=== PATIENT | male | born 1965 | race African-American/Black ===

== ENCOUNTER 2024-08-17 14:47 | Emergency (ER) | payer MEDICAID ==
[~2024-08-17] VITALS: Ht 175.3 cm; Wt 91.0 kg
[2024-08-17 15:22] VITALS: O2SAT 97
[2024-08-17 15:55] LABS: BASOPHILS % 0.9 % (0.0-2.0); EOSINOPHILS % 3.8 % (0.0-5.0); HEMATOCRIT. 45.4 % (42.0-52.0); HEMOGLOBIN. 15.5 g/dL (14.0-18.0); LYMPHOCYTES % 47.5 % (20.0-50.0); MEAN CORPUSCULAR HEMOGLOBIN 30.1 pg (28.0-32.0); MEAN CORPUSCULAR HGB CONC 34.1 g/dL (31.0-37.0); MEAN CORPUSCULAR VOLUME 88.4 fL (80.0-94.0); MEAN PLATELET VOLUME 8.8 fl (7.4-10.4); NEUTROPHILS % 38.8 % (40.0-76.0); PLATELET 202 x1000/uL (130-400); RED BLOOD CELL COUNT 5.13 mill/uL (4.7-6.1); RED CELL DISTRIBUTION WIDTH 13.3 % (11.6-14.6); WHITE BLOOD COUNT 4.4 x1000/uL (4.5-11.0)
[2024-08-17 16:00] LABS: CHLORIDE 106 mEq/L (98-107); POTASSIUM 3.9 mEq/L (3.5-5.1); SODIUM 139 mEq/L (136-145)
[2024-08-17 16:01] LABS: CARBON DIOXIDE 26 mEq/L (21-32)
[2024-08-17 16:02] LABS: CALCIUM 9.9 mg/dL (8.7-10.4)
[2024-08-17 16:06] LABS: CREATININE 1.2 mg/dL (0.6-1.3); GLUCOSE 90 mg/dL (70-105); UREA NITROGEN BLOOD 9 mg/dL (9-23)
[2024-08-17 16:07] LABS: TROPONIN I HIGH SENSITIVITY 4 ng/L (3.0-53)
[2024-08-17] MEDS: ASPIRIN 81MG TABLET PO ONE (17:02)
[2024-08-17 18:21] LABS: TROPONIN I HIGH SENSITIVITY 4 ng/L (3.0-53)
[2024-08-17 20:22] VITALS: BP 146/82; PULSE 64; RESP 18; TEMP 36.72516; O2SAT 98
== END 2024-08-17 20:24 | disposition home or self-care (01) ==
LOC: ER 14:47
DX: R07.89 Other chest pain (principal); E78.00 Pure hypercholesterolemia, unspecified; I10 Essential (primary) hypertension; Z98.890 Other specified postprocedural states
CPT/HCPCS: 36415; 71045; 80048; 84484; 85025; 93005; 99284

== ENCOUNTER 2025-01-19 15:24 | Emergency (ER) | payer MEDICAID, OTHER ==
[~2025-01-19] VITALS: Ht 167.6 cm; Wt 104.3 kg
[2025-01-19 15:29] VITALS: O2SAT 99
[2025-01-19 15:37] VITALS: BP 157/79; PULSE 71; RESP 18; TEMP 36.9; O2SAT 99
[2025-01-19 16:10] LABS: BASOPHILS % 0.8 % (0.0-2.0); EOSINOPHILS % 2.8 % (0.0-5.0); HEMATOCRIT. 41.4 % (42.0-52.0); HEMOGLOBIN. 13.9 g/dL (14.0-18.0); LYMPHOCYTES % 31.3 % (20.0-50.0); MEAN CORPUSCULAR HEMOGLOBIN 29.1 pg (28.0-32.0); MEAN CORPUSCULAR HGB CONC 33.5 g/dL (31.0-37.0); MEAN PLATELET VOLUME 8.3 fl (7.4-10.4); MONOCYTES % 9.5 % (2.0-8.0); NEUTROPHILS % 55.6 % (40.0-76.0); PLATELET 247 x1000/uL (130-400); RED BLOOD CELL COUNT 4.76 mill/uL (4.7-6.1); RED CELL DISTRIBUTION WIDTH 13.2 % (11.6-14.6); WHITE BLOOD COUNT 6.2 x1000/uL (4.5-11.0)
[2025-01-19 16:18] LABS: CHLORIDE 104 mEq/L (98-107); POTASSIUM 4.3 mEq/L (3.5-5.1); SODIUM 139 mEq/L (136-145)
[2025-01-19 16:19] LABS: CALCIUM 9.3 mg/dL (8.7-10.4); CARBON DIOXIDE 28 mEq/L (21-32)
[2025-01-19 16:24] LABS: CREATININE 1.1 mg/dL (0.6-1.3); GLUCOSE 105 mg/dL (70-105); UREA NITROGEN BLOOD 12 mg/dL (9-23)
== END 2025-01-19 17:54 | disposition home or self-care (01) ==
LOC: ER 15:31
DX: I10 Essential (primary) hypertension (principal); E11.9 Type 2 diabetes mellitus without complications; Z98.890 Other specified postprocedural states
CPT/HCPCS: 36415; 80048; 85025; 93005; 99283; 99284